=== PATIENT | female | born 1985 | race Caucasian/White ===

== ENCOUNTER 2018-12-14 21:00 | Inpatient (IN) ==
[2018-12-14] MEDS ORDERED: Metoclopramide 10 MG/2 ML VIAL IVP PRN (21:24)
[2018-12-14] MEDS ORDERED: Ondansetron 4 MG/2 ML VIAL IVP PRN (21:24)
[2018-12-14] MEDS ORDERED: Naloxone 0.4 MG/ML INJ IVP PRN (21:24)
[2018-12-14] MEDS ORDERED: *HR* Nalbuphine 10 MG/ML AMPUL IVP PRN (21:24)
[2018-12-14] MEDS ORDERED: Famotidine 20 MG/2 ML VIAL IVP PRN (21:24)
[2018-12-14] MEDS ORDERED: miSOPROStol 25 MCG TABLET PO PRN (21:24)
[2018-12-14] MEDS ORDERED: Oxytocin 20 units/ LR 1000 mL 20 UNIT/1,000 ML BAG IVC SCH (21:30)
[2018-12-14] MEDS ORDERED: Ringers Solution, Lactated 1,000 ML IVC SCH (21:30)
[2018-12-14 22:03] LABS: Basophils % 0.3 %; Hematocrit 37.3 % (35.3-44.9); Hemoglobin 12.5 g/dL (11.5-15.4); Lymphocytes # 1.8 K/mcL (0.6-4.6); Lymphocytes % 18.6 %; Mean Corpuscular HGB Conc 33.5 g/dL (31.6-35.5); Mean Corpuscular Hemoglobin 30.5 pg (28.0-33.3); Mean Platelet Volume 10.4 fL (9.4-12.4); Monocytes # 0.6 K/mcL (0.0-1.3); Monocytes % 5.9 %; Neutrophils # 7.3 K/mcL (1.6-8.9); Platelet Count 238 K/mcL (140-400); Red Cell Distribution Width 13.2 % (11.5-14.5); Segmented Neutrophils % 74.2 %; White Blood Count 9.8 K/mcL (4.3-11.1)
[2018-12-14 22:13] LABS: Amphetamine Screen,Urine Negative ng/mL (Cutoff=1000); Barbiturate Screen,Urine Negative ng/mL (Cutoff=200); Benzodiazepines Screen,Urine Negative ng/mL (Cutoff=200); Cannabinoid Screen,Urine Negative ng/mL (Cutoff = 50); Cocaine Screen,Urine Negative ng/mL (Cutoff= 300); Opiate Screen,Urine Negative ng/mL (Cutoff=300); Phencyclidine Screen,Urine Negative ng/mL (Cutoff=25)
--- NOTE | 2018-12-15 00:13 | OB/GYN History & Physical ---
Date of Encounter: 12/15/18 Time of Encounter: 00:13 Assessment and Plan (1) 41 weeks gestation of Current visit: Yes Status: Acute Under the care of Dr. Curry, and Dr. Avendano (2) Elective induction of labor planned Current visit: Yes Status: Acute Cytotec 50mcg PO q 4 as needed Pitocin per protocol (3) NST (non-stress test) reactive Current visit: Yes Status: Acute 135 bpm, moderate variable 15x15 accels no decels, category 1 tracing History of Present Illness Chief complaint: induction of labor at 41 weeks HPI: Ms. Aranda is a 33 year old female is 41 weeks and 3 days presenting for induction of labor. Patient denies leakage of fluid. She endorses some bloody show, endorses movement, endorses contractions every 3-4 minutes. She denies a history of UTI or STI during this . She denies alcohol, tobacco, illicit drug use during this . She denies gestational diabetes, preeclampsia during this . She has had good obstetric care with Dr. Avendano. She plans to breast-feed her child, and has pediatric follow- up at [facility]. Patient has a history of having her right ovary removed in the past. GBS- HIV negative Hepatitis B nonreactive Rubella positive Varicella positive O+ Past Med Surg Social Fam HX - Past Medical History Attestation: Yes The following information was validated with the patient. Medical history: no medical history Psychiatric history: no psych history - Past Surgical History Additional surgical history: R ovary removed - Social History Smoking Status: Never smoker Smokeless Tobacco Status: No Alcohol use: none Drug use: none - Family History Father Living Status: Still Living Hx Family Cardiac Disorders: Yes (HTN) Obstetrical History - Pregnancies : 3 Para: 1 Term: 1 : 0 Ab's: 1 Livin Medications and Allergies Aspirin 81 mg PO DAILY 09/04/18 [History] Pnv No.95/Ferrous Fum/Folic AC [ Caplet] 1 each PO DAILY 09/04/18 [H istory] raNITIdine HCl [Zantac] 150 mg PO DAILY 12/14/18 [History] Allergy/AdvReac Type Severity Reaction Status Date / Time No Known Allergies Allergy Verified 12/14/18 21:12 Review of System OB All systems PM: reviewed and no additional remarkable complaints except as stated - Constitutional Constitutional ROS IM: no anorexia, no chills, no fatigue, no fever(s), no headache(s), no lethargy, no malaise, no weakness - Cardiovascular Cardiovascular: no chest pain, no diaphoresis, no dyspnea, no edema - Respiratory Respiratory: no dyspnea, no dyspnea on exertion - Gastrointestinal Gastrointestinal: diarrhea (2 episodes of nonbloody, watery diarrhea today after her appointment at the OB clinic), no abdominal pain, no cramping, no nausea, no vomiting - Genitourinary Genitourinary: no abnormal vaginal bleeding, no dysuria, no flank pain, no hematuria, no pelvic pain, no urinary frequency, no urinary incontinence - Psychiatric Psychiatric: no anhedonia, no anxiety, no depression, no hopelessness, no irritability Exam - Constitutional Constitutional: well developed, well nourished, no acute distress, average body habitus - HEENT HEENT: EOMI, PERRL, Normocephaly, Mucus Membranes Moist - Neck Neck exam: full ROM, supple - Lungs Respiratory exam: CTAB - Cardiovascular Cardiovascular exam: RRR, +S1, +S2 - Abdomen Abdomen: Present: gravid, non tender - Extremities Extremities exam: full ROM, normal inspection, radial pulses palpable and symmetrical - 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 - VTE Reasons for not Prescribing Prophylaxis: Treatment not Indicated - Low risk for VTE
[2018-12-15] MEDS ORDERED: Ropivacaine/PF 0.2% 20 ML VIAL ONE (05:13)
[2018-12-15] MEDS ORDERED: *HR* FentaNYL (PF) 100 MCG/2 ML VIAL ONE ×2 (05:13→07:25)
[2018-12-15] MEDS ORDERED: Epidural Premix (fent/bupiv) 110 ML EP ONE (05:15)
[2018-12-15] MEDS ORDERED: EPHEDrine 50 MG/ML VIAL IVP PRN (07:02)
--- NOTE | 2018-12-15 07:05 | Anesthesia Evaluation PreOp ---
Date of Encounter: 12/15/18 Time of Encounter: 05:18 - Past History Planned Operation: og Cardiac History: Denies any Significant Hx Pulmonary History: Denies Any Significant HX ITALIAN TEACHER History: Denies Any Significant HX Other Medical History: Other (frequent heartburn) Anesthesia History: No Prior Anesthetic Complications, Past Anesthesia (appe) : Yes (41 weeks ) Alcohol Use: none Drug use: none Medications and Allergies Aspirin 81 mg PO DAILY 09/04/18 [History] Pnv No.95/Ferrous Fum/Folic AC [ Caplet] 1 each PO DAILY 09/04/18 [Hist ory] raNITIdine HCl [Zantac] 150 mg PO DAILY 12/14/18 [History] Allergy/AdvReac Type Severity Reaction Status Date / Time No Known Allergies Allergy Verified 12/14/18 21:12 - Meds/Allergy Pre-op Review Medications Reviewed: Yes Allergies Reviewed: Yes Beta Blockers on Current Med List: No Anesthesia Results - Labs 12/14/18 21:29 Anesthesia Exam O2 Sat Height 1.78 m Weight 95.254 kg Height: 70 Weight: 95 - HEENT Pupil (Motor): Pupils equal Mallampati: I Teeth: Normal Oral Opening: Greater than 3 - ITALIAN TEACHER LOC: Oriented ITALIAN TEACHER Motor: Normal RUE, Normal LUE, Normal RLE, Normal LLE, Normal Face ITALIAN TEACHER Sensory: Normal: RUE, LUE, RLE, LLE, Face - Cardiac Rhythm: Regular Murmur: None JVD: No Carotid Bruit: No - Pulmonary Respiratory Effort: Symmetrical Anesthesia Assess/Plan ASA Score: 2 Level of consciousness: Cooperative Anesthetic Plan: Epidural Monitoring Plan: Standard Monitors
--- NOTE | 2018-12-15 07:09 | Anesthesia Procedures ---
Date of Encounter: 12/15/18 Time of Encounter: 05:18 (procedure end time 0540) Procedures: Anesthesia - Epidural/Spinal Patient ID/Chart reviewed: Yes Patient examined: Yes OB Eval: Gestational age: 39 OB Eval: : 2 OB Eval: Hx Para: 1 OB Eval: Contractions: Non-stressed pattern Supplemental Oxygen: None/Room Air Site Prep: Aseptic Technique Patient position: upright Local Anesthetic: Lidocaine 1% Amount of Local Anesthetic used: 3 Touhy Needle Gauge: 18 Touhy Needle Depth (cm): 6 Catheter Depth at Skin (cm): 12 Test Dose (1.5% Lido + Epi): Volume given (mls): 3 Test Dose Result: Negative Loading Dose: Fentanyl (mcg): 100 Loading Dose: Other: 5cc 0.2% ropivicaine Loading Dose Administered: Thru Touhy Needle Infusion Med: 0.125% Bupivacaine w/ 2 mcg/ml Fentanyl Infusion Rate (mls/hr): [address]: Tegaderm Interspace Used: L4-L5 Loss of Resistance (CHAI): Yes Blood: No CSF: No Paresthesia: No Procedure: Tolerated well. Good CHAI, bolus through needle, catheter to 12 cm, right sided parasthesia during catheter insertion that immediately resolved. Negative test dose, gtt to 15cc/hr
[2018-12-15] MEDS ORDERED: Epidural Premix (fent/bupiv) 110 ML EP SCH (07:15)
--- NOTE | 2018-12-15 07:20 | Anesthesia Progress Note ---
Date of Encounter: 12/15/18 Time of Encounter: 07:16 Anesthesia Note - Note Note: 12/15/18 07:16 Called to patient room for pain with contractions 01/20. Patient states that right leg is numb, which correlates with the right sided parasthesia on initial catheter insertion. After discussion of the risks/benefits we agreed to replace the epidural. Same interspace, L4-5, Good yolie at 6cm, catheter to 12cm and gtt restarted.
[2018-12-15] MEDS ORDERED: Bupivacaine-MPF 0.25% 10 ML VIAL ONE (07:24)
--- NOTE | 2018-12-15 08:38 | OB Labor Progress Note ---
Date of Encounter: 12/15/18 Time of Encounter: 08:35 Labor Progress Note - Subjective Subjective: The patient is comfortable with her epidural - Vital Signs Vital Signs: Afebrile, vital signs stable - Cervix Cervix: 7/100/0, vertex - Heart Tones Heart Tones: 140s baseline, variables with contractions - Byram Byram: Contractions every 2-3 minutes on 12 milliunits of Pitocin - Interventions Interventions: 41 week 4 day IUP with induction of labor, spontaneous rupture membranes at 0815, small amount of clear fluid. - Plan Plan: Close observation, repositioning as needed, anticipate vaginal delivery
--- NOTE | 2018-12-15 09:30 | OB/GYN Procedure Note ---
Delivery - Delivery Date: 12/15/18 Provider: Supriya Avendano Intrapartum events: none Delivery induction: oxytocin, misoprostol Delivery monitor: external FHT, external uterine Anesthesia: epidural Quantitated Blood Loss: 400 - Infant (s) A Delivery Date: 12/15/18 Delivery Time: 08:57 Presentation: vertex Position: ANNELISE Route of delivery: Gender: Female Viability: Viable Pounds: 7 Ounces: 14 Weight Gram: 3.56 kg at 1 minute: 8 at 5 mins: 9 Shoulder Dystocia: not encountered Specimens collected: cord blood Placenta: spontaneous Cord: nuchal cord (x2), 3 umbilical vessels, nuchal reduced - Repair Episiotomy: none Laceration Description: Periurethral (Unrepaired, hemostatic), Perineal - 2nd Degree (Repaired with 3-0 Monocryl), Vaginal (Left sidewall repaired with 3-0 Monocryl) - Complications Delivery complications: none Delivery comments: The patient went rapidly to complete with a spontaneous vaginal delivery after 3 contractions with pushing with epidural anesthesia of a vigorous female in the ANNELISE position weighing 7 lbs. 14 oz. with Apgars of 8 at 1 minute and 9 at 5 minutes. The there was a nuchal 2 which was reduced. Infant was placed on the maternal abdomen and the cord was clamped and cut after pulsations ceased. Cord blood was obtained. Placenta was delivered spontaneous and intact. Three- vessel cord confirmed. There was a superficial periurethral laceration which was hemostatic and not repaired. There was a left vaginal wall laceration which was repaired with 3-0 Monocryl in a running nonlocking fashion. There was a second-degree perineal laceration which was repaired in usual fashion with 3-0 Monocryl. Estimated blood loss 400 mL's. Complications none. Both mother and infant recovering in stable condition in the LDR. - Disposition Mom disposition: stable in LDR [place] disposition: stable in LDR
[2018-12-15] MEDS ORDERED: Oxytocin 20 units/ LR 1000 mL 20 UNIT/1,000 ML BAG IVC SCH (11:58)
[2018-12-15] MEDS ORDERED: Rho Immune Globulin 1,500 UNIT SYRINGE IM PRN (11:58)
[2018-12-15] MEDS ORDERED: Measles/Mumps/Rubella Vacc 0.5 ML VIAL SQ PRN (11:58)
[2018-12-15] MEDS ORDERED: Acetaminophen 325 MG TABLET PO SCH (12:00)
--- NOTE | 2018-12-15 13:11 | Anesthesia Progress Note ---
Date of Encounter: 12/15/18 Time of Encounter: 07:30 Anesthesia Note - Note Note: After placement of 2nd epidural catheter, patient reports pain with contractions on L side, although she said it is improving. Therefore, 7mL of 0.125% bupi + 100mcg fentanyl administered through catheter. Patient reports significant improvement in pain score. VSS 12/15/18 13:09
[2018-12-15] MEDS: Ibuprofen 600 MG TABLET PO SCH (20:01)
[2018-12-16] MEDS ORDERED: Prenatal Vit/FA 1 EACH TABLET PO SCH (09:00)
[2018-12-16 09:03] VITALS: BP 108/68
[2018-12-16] MEDS: Ibuprofen 600 MG TABLET PO SCH (09:22)
--- NOTE | 2018-12-16 12:51 | Discharge Summary ---
Date of Encounter: 12/16/18 Time of Encounter: 12:45 - Discharge Diagnosis (1) Vaginal delivery Priority: Primary Status: Acute Comments: Patient meeting day one milestones. Pain well-controlled with prescribed medications. Voiding without difficulty, tolerating regular diet, bleeding light. No bowel movement yet. Anticipate discharge today (2) Breast feeding status of mother Priority: Secondary Status: Acute Comments: support as needed Will provide breast pump prescription if needed (3) Second degree perineal laceration Priority: Secondary Status: Acute Comments: Motrin, Dermoplast, ice packs as needed for discomfort. Patient states she will take [id number] Motrin if needed for discomfort. - Discharge Medications Prescriptions: New Mupirocin [Bactroban Oint] 1 appl TP BID tube Breast Pump [BREAST PUMP] 1 each .ROUTE AD #1 each Docusate [Colace] 100 mg PO BID capsule Ibuprofen [Motrin] 600 mg PO Q6HR tablet Acetaminophen [Tylenol] 650 mg PO Q6HR tablet Continued raNITIdine HCl [Zantac] 150 mg PO DAILY Aspirin 81 mg PO DAILY Pnv No.95/Ferrous Fum/Folic AC [ Caplet] 1 each PO DAILY Home Medications: Aspirin 81 mg PO DAILY 09/04/18 [History] Pnv No.95/Ferrous Fum/Folic AC [ Caplet] 1 each PO DAILY 09/04/18 [History] raNITIdine HCl [Zantac] 150 mg PO DAILY 12/14/18 [History] Acetaminophen [Tylenol] 650 mg PO Q6HR tablet 12/16/18 [Rx] Breast Pump [BREAST PUMP] 1 each .ROUTE AD #1 each 12/16/18 [Rx] Docusate [Colace] 100 mg PO BID capsule 12/16/18 [Rx] Ibuprofen [Motrin] 600 mg PO Q6HR tablet 12/16/18 [Rx] Mupirocin [Bactroban Oint] 1 appl TP BID tube 12/16/18 [Rx] Allergies/Adverse Reactions: Allergy/AdvReac Type Severity Reaction Status Date / Time No Known Allergies Allergy Verified 12/14/18 21:12 Data Procedures and tests throughout hospitalization: Laboratory Tests 12/14/18 12/14/18 21:29 21:29 WBC 9.8 RBC 4.10 Hgb 12.5 Hct 37.3 MCV 91.0 MCH 30.5 MCHC 33.5 RDW 13.2 Plt Count 238 MPV 10.4 Immature Gran % 1.0 Seg Neutrophils % 74.2 Lymphocytes % 18.6 Monocytes % 5.9 Eosinophils % 0.0 Basophils % 0.3 Neutrophils # 7.3 Lymphocytes # 1.8 Monocytes # 0.6 Eosinophils # 0.0 Basophils # 0.0 Urine Opiates Screen Negative Ur Buprenorphine Scrn Negative Ur Barbiturates Screen Negative Ur Phencyclidine Scrn Negative Ur Amphetamines Screen Negative U Benzodiazepines Scrn Negative Urine Cocaine Screen Negative U Marijuana (THC) Screen Negative Ur Drug Screen Interp See Below Date of admission: 12/14/18 21:01 Primary care physician: Sara Mchugh MD Consults: 12/15/18 11:58 Consult to Distillery Manager [CONS] Routine Comment: Vaginal delivery, consult needed Discharging clinician: Ginny Baldwin Anticipated date of discharge: 12/16/18 - Patient Status Disposition: Home, Self-Care Condition: Good Functional capacity at discharge: independent ambulation Overall status at discharge: patient is progressing back to baseline - Discharge Instructions Follow Up With: Sara Mchugh MD [Primary Care Provider] - Supriya Avendano MD [Partnered Physician] - - Diet and Activity Activity: resume usual activities as tolerated Diet: regular diet Hospital Course Reason for admission: induction of labor, IUP at term Delivery: Episiotomy: none Laceration: 2nd degree Other procedures: none complications: none Discharge diagnosis: IUP at term delivered baby: female Hospital course: Delivery Date: 12/15/18 Provider: Supriya Avendano Intrapartum events: none Delivery induction: oxytocin, misoprostol Delivery monitor: external FHT, external uterine Anesthesia: epidural Quantitated Blood Loss: 400 - (s) A Infant Delivery Date: 12/15/18 Infant Delivery Time: 08:57 Presentation: vertex Position: ANNELISE Route of delivery: Gender: Female Viability: Viable Pounds: 7 Ounces: 14 Weight Gram: 3.56 kg at 1 minute: 8 at 5 mins: 9 Shoulder Dystocia: not encountered Specimens collected: cord blood Placenta: spontaneous Cord: nuchal cord (x2), 3 umbilical vessels, nuchal reduced - Repair Episiotomy: none Laceration Description: Periurethral (Unrepaired, hemostatic), Perineal - 2nd Degree (Repaired with 3-0 Monocryl), Vaginal (Left sidewall repaired with 3-0 Monocryl) - Complications Delivery complications: none Delivery comments: The patient went rapidly to complete with a spontaneous vaginal delivery after 3 contractions with pushing with epidural anesthesia of a vigorous female in the ANNELISE position weighing 7 lbs. 14 oz. with Apgars of 8 at 1 minute and 9 at 5 minutes. The there was a nuchal 2 which was reduced. Infant was placed on the maternal abdomen and the cord was clamped and cut after pulsations ceased. Cord blood was obtained. Placenta was delivered spontaneous and intact. Three- vessel cord confirmed. There was a superficial periurethral laceration which was hemostatic and not repaired. There was a left vaginal wall laceration which was repaired with 3-0 Monocryl in a running nonlocking fashion. There was a second-degree perineal laceration which was repaired in usual fashion with 3-0 Monocryl. Estimated blood loss 400 mL's. Complications none. Both mother and infant recovering in stable condition in the LDR. - Disposition Mom disposition: stable in LDR [place] disposition: stable in LDR Time Attestation: Total time spent providing and/or coordinating discharge services: Time Spent: Less than 30 minutes Exam - Constitutional Vitals: Temp Pulse Resp BP Pulse Ox 97.8 F 61 16 108/68 100 12/16/18 08:00 12/16/18 08:00 12/16/18 08:00 12/16/18 08:00 12/16/18 04:32 General appearance IM: A&O X 3, pleasant, no acute distress, answers questions appropriately - Respiratory Respiratory exam: Present: CTAB. Absent: respiratory distress - Cardiovascular Cardiovascular exam IM: Present: RRR, +S1, +S2. Absent: irregular rhythm - GI/Abdominal GI/Abdominal exam IM: normal bowel sounds, soft - Rectal Rectal exam: deferred - External exam: normal external exam Uterine Tone: Firm Uterus Position: At Umbilicus, Midline - Extremities Exam Extremities exam IM: Present: full ROM, normal capillary refill, normal inspection. Absent: calf tenderness - Neurological Exam Neurological exam: alert, normal gait, oriented X3
== END 2018-12-16 14:32 | disposition home or self-care (01) | DRG 806 ==
LOC: 1NENULAB 21:01 → 1NENUOBS 12-15 11:58
PROVIDERS: ADMIT Obstetrics & Gynecology; ATTEND Obstetrics & Gynecology